=== PATIENT | female | born 1945 | race Caucasian/White ===

== ENCOUNTER 2019-05-29 05:54 | Inpatient (IN) ==
[2019-05-23 13:44] LABS: Basophils # 0.1 10*3/uL (0.0-0.2); Basophils % 1.1 % (0.0-0.8); Eosinophils # 0.7 10*3/uL (0.0-0.87); Eosinophils % 13.1 % (0.00-10.9); Hematocrit 35.9 VOL% (35.7-47.0); Hemoglobin 11.2 GM/DL (12.0-16.0); Immature Granulocytes % 0.2 %; Immature Granulocytes Absolute 0.01 #; Lymphocytes # 1.6 10*3/uL (1.4-4.0); Lymphocytes % 28.8 % (21.3-54.2); Mean Corpuscular HGB Conc 31.2 GM/DL (32-36); Mean Corpuscular Volume 88.6 FL (87-102); Mean Platelet Volume 9.9 FL (9.6-12.0); Monocytes % 10.2 % (1.7-12.7); Neutrophils % 46.6 % (38.7-73.9); Platelet Count 115 T/CUMM (130-400); Red Blood Count 4.05 MC/CUMM (3.8-5.5); Red Cell Distribution Width 15.3 % (9.3-17.3); White Blood Count 5.6 T/CUMM (4-12)
[2019-05-23 14:14] LABS: Calcium 9.2 MG/DL (8.5-10.1); Eosinophils 12 % (0-10); Lymphocytes 29 % (20-55); Osmolality,Calculated 285.5 MOS/KG (273-304); Segmented Neutrophils 43 % (50-85); Total Cells Counted 100
[2019-05-23 14:15] LABS: Hypochromasia 2+; Microcytosis 1+; Platelet Estimate Adequate
[2019-05-29] MEDS ORDERED: ALVIMOPAN 12 MG CAPSULE ONE (05:56)
[2019-05-29] MEDS ORDERED: ERTAPENEM 1,000 MG VIAL ONE (05:56)
[2019-05-29] MEDS ORDERED: LACTATED RINGERS 1,000 ML IV SCH (06:00)
[2019-05-29] MEDS ORDERED: ERTAPENEM 1,000 MG in SODIUM CHLORIDE 0.9% 100 ML IV ONE (06:00)
[2019-05-29] MEDS ORDERED: ALVIMOPAN 12 MG CAPSULE PO ONE (06:00)
[2019-05-29] MEDS ORDERED: BUPIVACAINE MPF 0.25% 30 ML VIAL ONE (06:16)
[2019-05-29] MEDS ORDERED: TISSUE ADHESIVE 1 EACH APPLICATOR TOP ONE ×2 (06:16→09:49)
[2019-05-29] MEDS ORDERED: INDOCYANINE GREEN 25 MG VIAL IV ONE (06:16)
[2019-05-29] MEDS ORDERED: LIDOCAINE 1%/EPI INJ 20 ML VIAL ONE (06:16)
[2019-05-29 06:48] LABS: PT Patient Result 10.6 SECS (9.6-12.2)
[2019-05-29] MEDS ORDERED: ETOMIDATE 40 MG/20 ML VIAL IV ONE (10:32)
[2019-05-29] MEDS ORDERED: PHENYLEPHRINE 10 MG/1 ML VIAL IV ONE (10:32)
[2019-05-29] MEDS ORDERED: LIDOCAINE 2% 5 ML VIAL ONE (10:32)
[2019-05-29] MEDS ORDERED: HYDROCORTISONE 100 MG VIAL ONE (10:32)
[2019-05-29] MEDS ORDERED: fentaNYL 250 MCG/5 ML VIAL ONE (10:32)
[2019-05-29] MEDS ORDERED: SEVOFLURANE 1 UNIT/15 MINUTE INH ONE (10:32)
[2019-05-29] MEDS ORDERED: GLYCOPYRROLATE 0.4 MG/2 ML VIAL ONE (10:32)
[2019-05-29] MEDS ORDERED: ONDANSETRON 4 MG/2 ML VIAL ONE ×2 (10:32→10:44)
[2019-05-29] MEDS ORDERED: ROCURONIUM 100 MG/10 ML VIAL IV ONE (10:33)
[2019-05-29] MEDS ORDERED: LACTATED RINGERS 1,000 ML IV ONE (10:33)
[2019-05-29] MEDS ORDERED: SODIUM CHLORIDE 0.9% 100 ML IV ONE (10:33)
[2019-05-29] MEDS ORDERED: NEOSTIGMINE 10 MG/10 ML VIAL ONE (10:33)
[2019-05-29] MEDS ORDERED: SUCCINYLCHOLINE 200 MG/10 ML VIAL ONE (10:33)
[2019-05-29] MEDS ORDERED: MEPERIDINE 25 MG/1 ML VIAL ONE (10:44)
[2019-05-29] MEDS ORDERED: fentaNYL 100 MCG/2 ML VIAL IV ONE (10:46)
[2019-05-29] MEDS ORDERED: ONDANSETRON 4 MG/2 ML VIAL IV PRN (10:51)
[2019-05-29] MEDS ORDERED: INFLUENZA VIRUS VACCINE 0.5 ML SYRINGE IM ONE (11:30)
[2019-05-29] MEDS ORDERED: HYDROmorphone 2 MG/1 ML VIAL IV PRN (12:09)
[2019-05-29] MEDS ORDERED: NITROGLYCERIN SL 0.4 MG TABLET SL PRN (12:09)
[2019-05-29] MEDS ORDERED: ALBUTEROL 2.5 MG/3 ML NEB RESP TX PRN (12:09)
[2019-05-29 12:35] LABS: Basophils % 0.4 % (0.0-0.8); Eosinophils % 1.1 % (0.00-10.9); Hematocrit 36.2 VOL% (35.7-47.0); Hemoglobin 11.1 GM/DL (12.0-16.0); Lymphocytes # 0.5 10*3/uL (1.4-4.0); Lymphocytes % 18.8 % (21.3-54.2); Mean Corpuscular HGB Conc 30.7 GM/DL (32-36); Mean Corpuscular Volume 91.2 FL (87-102); Mean Platelet Volume 10.5 FL (9.6-12.0); Monocytes % 7.1 % (1.7-12.7); Neutrophils % 72.6 % (38.7-73.9); Red Blood Count 3.97 MC/CUMM (3.8-5.5); Red Cell Distribution Width 15.2 % (9.3-17.3); White Blood Count 2.7 T/CUMM (4-12)
[2019-05-29 12:36] LABS: Platelet Count 89 T/CUMM (130-400)
[2019-05-29 12:59] LABS: Calcium 8.9 MG/DL (8.5-10.1); Osmolality,Calculated 283.5 MOS/KG (273-304)
[2019-05-29] MEDS: KETOROLAC 15 MG/1 ML VIAL IV SCH ×2 (13:00→18:51)
[2019-05-29] MEDS: LACTATED RINGERS 1,000 ML IV SCH (13:00)
[2019-05-29] MEDS: ATENOLOL 25 MG TABLET PO SCH (19:38)
[2019-05-29] MEDS ORDERED: LACTATED RINGERS 500 ML IV ONE (20:37)
[2019-05-29 21:31] LABS: INR 1.1; PT Patient Result 11.4 SECS (9.6-12.2)
[2019-05-29 21:47] LABS: Basophils % 0.3 % (0.0-0.8); Eosinophils % 0.1 % (0.00-10.9); Hematocrit 31.6 VOL% (35.7-47.0); Hemoglobin 9.8 GM/DL (12.0-16.0); Immature Granulocytes % 0.1 %; Immature Granulocytes Absolute 0.01 #; Lymphocytes # 0.7 10*3/uL (1.4-4.0); Lymphocytes % 7.9 % (21.3-54.2); Mean Corpuscular Volume 89.8 FL (87-102); Mean Platelet Volume 11.5 FL (9.6-12.0); Monocytes % 8.3 % (1.7-12.7); Neutrophils % 83.3 % (38.7-73.9); Platelet Count 106 T/CUMM (130-400); Red Blood Count 3.52 MC/CUMM (3.8-5.5); Red Cell Distribution Width 15.7 % (9.3-17.3)
[2019-05-29 21:48] LABS: White Blood Count 8.7 T/CUMM (4-12)
[2019-05-29] MEDS: ALVIMOPAN 12 MG CAPSULE PO SCH (21:56)
[2019-05-29] MEDS: NITROFURANTOIN MACRO/MONO 100 MG CAPSULE PO SCH (21:56)
[2019-05-29 22:01] LABS: Band Neutrophils 12 % (0-10); Lymphocytes 11 % (20-55); Segmented Neutrophils 73 % (50-85); Total Cells Counted 100
[2019-05-29 22:02] LABS: Anisocytosis Slight; Macrocytosis Slight; Microcytosis Slight; Platelet Estimate Decreased
[2019-05-29] MEDS ORDERED: ALBUMIN 5% 25 GM in PREMIX 1 EACH IV ONE (22:30)
[2019-05-30] MEDS: KETOROLAC 15 MG/1 ML VIAL IV SCH ×2 (01:54→07:42)
[2019-05-30] MEDS ORDERED: ENOXAPARIN 40 MG/0.4 ML SYRINGE SUBCUT SCH (04:24)
[2019-05-30] MEDS ORDERED: LACTATED RINGERS 1,000 ML IV ONE (04:33)
[2019-05-30 05:50] LABS: Basophils % 0.2 % (0.0-0.8); Eosinophils % 0.2 % (0.00-10.9); Hematocrit 29.4 VOL% (35.7-47.0); Hemoglobin 9.1 GM/DL (12.0-16.0); Immature Granulocytes % 0.3 %; Immature Granulocytes Absolute 0.03 #; Lymphocytes # 0.9 10*3/uL (1.4-4.0); Lymphocytes % 9.9 % (21.3-54.2); Mean Corpuscular Volume 90.2 FL (87-102); Mean Platelet Volume 10.9 FL (9.6-12.0); Monocytes % 9.6 % (1.7-12.7); Neutrophils % 79.8 % (38.7-73.9); Red Blood Count 3.26 MC/CUMM (3.8-5.5); Red Cell Distribution Width 15.9 % (9.3-17.3); White Blood Count 9.2 T/CUMM (4-12)
[2019-05-30 06:01] LABS: Calcium 8.6 MG/DL (8.5-10.1); Osmolality,Calculated 282.8 MOS/KG (273-304)
[2019-05-30 06:14] LABS: Platelet Count 88 T/CUMM (130-400)
[2019-05-30 06:27] LABS: Band Neutrophils 2 % (0-10); Lymphocytes 6 % (20-55); Metamyelocytes 1 %; Platelet Estimate Decreased; Polychromasia Slight; Segmented Neutrophils 87 % (50-85); Total Cells Counted 100
[2019-05-30] MEDS: MULTIVITAMIN (CENTRUM) TABLET PO SCH (09:06)
[2019-05-30] MEDS: NITROFURANTOIN MACRO/MONO 100 MG CAPSULE PO SCH (09:06)
[2019-05-30] MEDS: ASPIRIN EC 325 MG TABLET PO SCH (09:06)
[2019-05-30] MEDS: GABAPENTIN 300 MG CAPSULE PO SCH (09:06)
[2019-05-30] MEDS: PANTOPRAZOLE 20 MG TABLET PO SCH (09:06)
[2019-05-30] MEDS: ALVIMOPAN 12 MG CAPSULE PO SCH (09:06)
[2019-05-30] MEDS: LACTOBACILLUS ACIDOPHILUS/BULGARICUS CAPLET PO SCH (09:06)
[2019-05-30] MEDS: oxyCODONE/ACETAMINOPHEN 5-325 MG TABLET PO PRN (09:55)
[2019-05-30 12:31] LABS: Basophils % 0.2 % (0.0-0.8); Eosinophils # 0.1 10*3/uL (0.0-0.87); Eosinophils % 0.6 % (0.00-10.9); Hematocrit 29.5 VOL% (35.7-47.0); Hemoglobin 9.2 GM/DL (12.0-16.0); Immature Granulocytes % 0.5 %; Immature Granulocytes Absolute 0.04 #; Lymphocytes # 0.8 10*3/uL (1.4-4.0); Lymphocytes % 9.3 % (21.3-54.2); Mean Corpuscular HGB Conc 31.2 GM/DL (32-36); Mean Corpuscular Volume 89.7 FL (87-102); Mean Platelet Volume 10.1 FL (9.6-12.0); Monocytes % 9.3 % (1.7-12.7); Neutrophils % 80.1 % (38.7-73.9); Platelet Count 82 T/CUMM (130-400); Red Blood Count 3.29 MC/CUMM (3.8-5.5); Red Cell Distribution Width 15.9 % (9.3-17.3); White Blood Count 8.8 T/CUMM (4-12)
[2019-05-30 13:09] LABS: Band Neutrophils 2 % (0-10); Hypochromasia Slight; Lymphocytes 14 % (20-55); Platelet Estimate Decreased; Segmented Neutrophils 78 % (50-85); Total Cells Counted 100
[2019-05-30 13:11] LABS: Albumin 2.9 G/DL (3.4-5.0); Bilirubin,Total 0.9 MG/DL (0.2-1.0); Calcium 8.4 MG/DL (8.5-10.1); Total Protein 5.6 G/DL (6.4-8.3)
[2019-05-30] MEDS: ATENOLOL 25 MG TABLET PO SCH (18:33)
[2019-05-30] MEDS: LACTATED RINGERS 1,000 ML IV SCH ×2 (21:46→21:47)
[2019-05-31] MEDS: ONDANSETRON 4 MG/2 ML VIAL IV PRN ×3 (01:46→08:22)
[2019-05-31] MEDS: NITROFURANTOIN MACRO/MONO 100 MG CAPSULE PO SCH ×3 (01:47→20:18)
[2019-05-31] MEDS: ALVIMOPAN 12 MG CAPSULE PO SCH ×3 (01:47→20:18)
[2019-05-31] MEDS: LACTATED RINGERS 1,000 ML IV SCH ×2 (05:45→11:12)
[2019-05-31] MEDS: GABAPENTIN 300 MG CAPSULE PO SCH (08:23)
[2019-05-31] MEDS: ASPIRIN EC 325 MG TABLET PO SCH (08:23)
[2019-05-31] MEDS: PANTOPRAZOLE 20 MG TABLET PO SCH (08:23)
[2019-05-31] MEDS: MULTIVITAMIN (CENTRUM) TABLET PO SCH (08:23)
[2019-05-31] MEDS: LACTOBACILLUS ACIDOPHILUS/BULGARICUS CAPLET PO SCH (08:23)
[2019-05-31] MEDS: DEXT 5% NACL 0.45% KCL 40 MEQ 40 MEQ/1,000 ML BAG IV SCH (13:33)
[2019-05-31] MEDS: ATENOLOL 25 MG TABLET PO SCH (18:45)
[2019-06-01] MEDS: DEXT 5% NACL 0.45% KCL 40 MEQ 40 MEQ/1,000 ML BAG IV SCH ×2 (00:19→09:27)
[2019-06-01 05:23] LABS: Basophils % 0.3 % (0.0-0.8); Eosinophils # 0.2 10*3/uL (0.0-0.87); Eosinophils % 2.3 % (0.00-10.9); Hematocrit 26.5 VOL% (35.7-47.0); Hemoglobin 8.3 GM/DL (12.0-16.0); Immature Granulocytes % 1.1 %; Lymphocytes # 0.9 10*3/uL (1.4-4.0); Lymphocytes % 10.3 % (21.3-54.2); Mean Corpuscular HGB Conc 31.3 GM/DL (32-36); Mean Corpuscular Volume 88.6 FL (87-102); Mean Platelet Volume 10.6 FL (9.6-12.0); Monocytes % 8.5 % (1.7-12.7); Neutrophils % 77.5 % (38.7-73.9); Platelet Count 114 T/CUMM (130-400); Red Blood Count 2.99 MC/CUMM (3.8-5.5); Red Cell Distribution Width 15.6 % (9.3-17.3); White Blood Count 8.8 T/CUMM (4-12)
[2019-06-01 05:52] LABS: Albumin 2.5 G/DL (3.4-5.0); Bilirubin,Total 0.6 MG/DL (0.2-1.0); Osmolality,Calculated 277.1 MOS/KG (273-304)
[2019-06-01] MEDS: ASPIRIN EC 325 MG TABLET PO SCH (09:00)
[2019-06-01] MEDS: LACTOBACILLUS ACIDOPHILUS/BULGARICUS CAPLET PO SCH (09:00)
[2019-06-01] MEDS: ALVIMOPAN 12 MG CAPSULE PO SCH ×2 (09:00→21:04)
[2019-06-01] MEDS: NITROFURANTOIN MACRO/MONO 100 MG CAPSULE PO SCH ×2 (09:00→21:04)
[2019-06-01] MEDS: GABAPENTIN 300 MG CAPSULE PO SCH (09:00)
[2019-06-01] MEDS: PANTOPRAZOLE 20 MG TABLET PO SCH (09:00)
[2019-06-01] MEDS: MULTIVITAMIN (CENTRUM) TABLET PO SCH (09:00)
[2019-06-01] MEDS: ATENOLOL 25 MG TABLET PO SCH (18:32)
[2019-06-02 06:00] LABS: Basophils % 0.6 % (0.0-0.8); Eosinophils # 0.5 10*3/uL (0.0-0.87); Eosinophils % 8.7 % (0.00-10.9); Hemoglobin 8.1 GM/DL (12.0-16.0); Immature Granulocytes % 0.6 %; Immature Granulocytes Absolute 0.03 #; Lymphocytes # 0.9 10*3/uL (1.4-4.0); Lymphocytes % 16.5 % (21.3-54.2); Mean Corpuscular HGB Conc 31.2 GM/DL (32-36); Mean Corpuscular Volume 88.1 FL (87-102); Mean Platelet Volume 10.8 FL (9.6-12.0); Monocytes % 12.9 % (1.7-12.7); Neutrophils % 60.7 % (38.7-73.9); Platelet Count 116 T/CUMM (130-400); Red Blood Count 2.95 MC/CUMM (3.8-5.5); Red Cell Distribution Width 15.6 % (9.3-17.3); White Blood Count 5.3 T/CUMM (4-12)
[2019-06-02 06:18] LABS: Calcium 8.9 MG/DL (8.5-10.1); Osmolality,Calculated 285.3 MOS/KG (273-304)
[2019-06-02 08:15] VITALS: BP 127/49
[2019-06-02] MEDS: oxyCODONE/ACETAMINOPHEN 5-325 MG TABLET PO PRN (09:56)
[2019-06-02] MEDS: NITROFURANTOIN MACRO/MONO 100 MG CAPSULE PO SCH (09:57)
[2019-06-02] MEDS: LACTOBACILLUS ACIDOPHILUS/BULGARICUS CAPLET PO SCH (09:57)
[2019-06-02] MEDS: GABAPENTIN 300 MG CAPSULE PO SCH (09:57)
[2019-06-02] MEDS: ASPIRIN EC 325 MG TABLET PO SCH (09:57)
[2019-06-02] MEDS: PANTOPRAZOLE 20 MG TABLET PO SCH (09:57)
[2019-06-02] MEDS: MULTIVITAMIN (CENTRUM) TABLET PO SCH (09:57)
[2019-06-02] MEDS: ALVIMOPAN 12 MG CAPSULE PO SCH (09:58)
[2019-06-02] MEDS ORDERED: PNEUMOCOCCAL VACCINE (23 VALENT) 0.5 ML VIAL IM ONE (10:54)
== END 2019-06-02 11:29 | disposition home or self-care (01) | DRG 330 ==
LOC: N.SDSINP 05:54 → N.PREADM 05:54 → N.3E 05:55
PROVIDERS: ADMIT Surgery; ATTEND Surgery